=== PATIENT | male | born 1965 | race Caucasian/White ===

== ENCOUNTER 2020-11-08 22:21 | Emergency (ER) | payer SELFPAY ==
[2020-11-08 22:28] VITALS: PULSE 97; RESP 18; O2SAT 94; BMI 26.6
--- NOTE | 2020-11-08 22:32 | ED_ITS ---
HPI - General Adult General: Chief complaint: General Medical Stated complaint: MULTIPLE COMPLAINTS Time Seen by Provider: 11/08/20 22:29 Source: patient and police Mode of arrival: ambulatory Limitations: no limitations History of Present Illness: HPI narrative: 55-year-old male who is here from the local skilled nursing. He states the diabetic states has been taking his Metformin but his sugars been running in the 300s and has been had slight fatigue. States has had some shakiness. He denies any vomiting or diarrhea. Patient denies any syncope and denies any chest pain. He denies any worsening improving factors. Associated symptoms: Deny chest pain, dyspnea, headache(s), nausea, rash or vomiting Review of Systems Const: Reports: fatigue; Denies: fever(s), chills, body aches or change in appetite Eyes: Denies: blurry vision or eye discomfort ENMT: Denies: throat pain or dental pain Card: Denies: chest pain Resp: Denies: dyspnea GI: Denies: abdominal pain, nausea, vomiting or diarrhea : Denies: dysuria Musc: Denies: neck pain or back pain Skin/Breast: Denies: rash Neuro: Denies: headache(s) Psych: Denies: depression Dionicio/Lymph: Denies: easy bruising All/Imm: Denies: urticaria Physical Exam Const: COMMON NORMALS: no acute distress, patient oriented x3 and healthy appearing HENMT: COMMON NORMALS: normocephalic and atraumatic HEAD & SCALP: normocephalic and atraumatic Eye: COMMON NORMALS: Equal, round and reactive pupils present and EOMs intact bilaterally PUPIL: Yes Equal, round and reactive pupils present Neck/C-Spine: COMMON NORMALS: full ROM and supple Chest: COMMONS NORMALS: normal inspection of the chest and normal palpation of entire chest wall Resp: COMMON NORMALS: normal respiratory effort, No retractions, No use of accessory muscles and clear to auscultation bilaterally AUSCULTATION: clear to auscultation bilaterally Cardio: COMMON NORMALS: regular rate, regular rhythm and No murmurs present (Cardio) RATE: regular rate RHYTHM: regular rhythm GI: COMMON NORMALS: Normal to inspection, nondistended, normoactive bowel sounds present, Soft to palpation, non-tender and no masses PALPATION: Yes Soft to palpation Extremity: COMMON NORMALS: normal to inspection and full ROM Neuro: COMMON NORMALS: patient oriented x3, moves all extremities and no focal motor deficits Psych: COMMON NORMALS: mental status grossly normal, Normal thought process present and cooperative THOUGHT PROCESS: Normal thought process present Skin: COMMON NORMALS: no rashes or lesions noted and no wounds GENERAL SKIN EXAM: no rashes or lesions noted Course Vital Signs: Vital signs: Vital Signs Pulse Rate 97 11/08/20 22:28 Respiratory Rate 18 11/08/20 22:28 Pulse Oximetry 94 11/08/20 22:28 MDM - General Adult MDM Narrative: Medical decision making narrative: Patient presents here with hyperglycemia from his diabetes. He is not in DKA and his blood sugar is much improved here. He is continue his Metformin patient discharged back into police custody. He is return if worsening. Lab Data: Labs: Lab Results 11/08/20 11/08/20 11/08/20 Range/Units 22:46 22:46 22:52 WBC 8.2 (4.0-10.0) 10^3/ uL RBC 5.34 H (4.1-5.3) 10^6/u L Hgb 15.7 (11.7-16.6) g/dL Hct 45.1 (42.0-52.0) % MCV 84.5 (80-94) fL MCH 29.4 (28.0-34.0) pg MCHC 34.8 (30.0-36.0) g/dL RDW 12.8 (12.1-15.1) % Plt Count 187 (130-400) 10^3/c mm MPV 10.1 (7.4-10.4) fL Neut % (Auto) 67.5 % Lymph % (Auto) 23.9 % [place] % (Auto) 6.7 % Eos % (Auto) 1.5 % Baso % (Auto) 0.2 % Neut # (Auto) 5.55 (1.8-7.7) 10^3/u L Lymph # (Auto) 2.0 (0.8-4.8) 10^3/u L [place] # (Auto) 0.6 (0.2-0.9) 10^3/u L Eos # (Auto) 0.1 (0.0-0.8) 10^3/u L Baso # (Auto) 0.0 (0.0-0.1) 10^3/u L Nucleated RBC % (a uto) 0 % Nucleated RBCs # 0.0 /100WBC Sodium 136 (136-145) mmol/L Potassium 4.3 (3.5-5.1) mmol/L Chloride 98 (98-107) mmol/L Carbon Dioxide 24 (22-29) mmol/L Anion Gap 18.3 (5-19) BUN 15 (6-20) mg/dL Creatinine 0.6 L (0.7-1.2) mg/dL GFR Calculation 140.9 H (90-130) mL/min Glucose 345 H (65-115) mg/dL POC Glucose 324 H (70-110) mg/dL Calculated Osmolal ity 297 H (285-295) mOsm/k g Calcium 9.1 (8.5-10.5) mg/dL Total Bilirubin 0.5 (0.15-1.2) mg/dL AST 14 (0-40) U/L ALT 22 (0-41) U/L Alkaline Phosphata se 96 (40-130) IU/L Total Protein 6.2 L (6.6-8.7) g/dL Albumin 4.2 (3.5-5.2) g/dL Globulin 2.0 (1.3-4.6) g/dL Discharge Plan Discharge Patient Disposition: Home Clinical Impression: Hyperglycemia Condition: Stable Discharge Orders: Discharge ED (Routine); Ordered 11/08/20 Ordered By: Marissa King Discharge Diet: Advance as tolerated Discharge Activity: Resume usual activity Patient Instructions: Diabetic Hyperglycemia (ED) Coding Level of Care Code ED Collateral Specialist for Chg Fwd Exam Comprehensive
[2020-11-08] MEDS: sodium chloride 0.9% 1,000 ML 999 ML IV (22:47)
[2020-11-08 22:51] LABS: Basophils % 0.2 %; Eosinophils # 0.1 10^3/uL (0.0-0.8); Eosinophils % 1.5 %; Hematocrit 45.1 % (42.0-52.0); Hemoglobin 15.7 g/dL (11.7-16.6); Lymphocytes % 23.9 %; Mean Corpuscular HGB Conc 34.8 g/dL (30.0-36.0); Mean Corpuscular Hemoglobin 29.4 pg (28.0-34.0); Mean Corpuscular Volume 84.5 fL (80-94); Mean Platelet Volume 10.1 fL (7.4-10.4); Monocytes # 0.6 10^3/uL (0.2-0.9); Monocytes % 6.7 %; Neutrophils # 5.55 10^3/uL (1.8-7.7); Neutrophils % 67.5 %; Nucleated Red Blood Cells % 0 %; Platelet Count 187 10^3/cmm (130-400); Red Blood Count 5.34 10^6/uL (4.1-5.3); Red Cell Distribution Width 12.8 % (12.1-15.1); White Blood Count 8.2 10^3/uL (4.0-10.0)
[2020-11-08 22:53] LABS: Glucose Point of Care 324 mg/dL (70-110)
[2020-11-08 23:11] LABS: Alanine Aminotransferase 22 U/L (0-41); Albumin Level 4.2 g/dL (3.5-5.2); Alkaline Phosphatase 96 IU/L (40-130); Anion Gap 18.3 (5-19); Aspartate Amino Transferase 14 U/L (0-40); Blood Urea Nitrogen 15 mg/dL (6-20); Calcium 9.1 mg/dL (8.5-10.5); Carbon Dioxide 24 mmol/L (22-29); Chloride 98 mmol/L (98-107); Glomerular Filtration Rate 140.9 mL/min (90-130); Glucose 345 mg/dL (65-115); Osmolality Calculated 297 mOsm/kg (285-295); Potassium 4.3 mmol/L (3.5-5.1); Sodium 136 mmol/L (136-145); Total Bilirubin 0.5 mg/dL (0.15-1.2); Total Protein 6.2 g/dL (6.6-8.7)
[2020-11-08] MEDS: insulin regular-human 100 units/1 mL 5 UNIT IVP (23:24)
[2020-11-08 23:54] LABS: Glucose Point of Care 241 mg/dL (70-110)
[2020-11-08 23:59] VITALS: PULSE 80; RESP 16; O2SAT 95
== END 2020-11-09 | disposition home or self-care (01) ==
PROVIDERS: Emergency Provider Emergency Medicine
DX: E11.65 Type 2 diabetes mellitus with hyperglycemia (principal); Z79.84 Long term (current) use of oral hypoglycemic drugs
CPT/HCPCS: 36416; 80053; 82962; 85025; 96361; 96374; 99283; J1815; J7030

== ENCOUNTER 2024-07-24 02:11 | Emergency (ER) | payer MEDICAID, SELFPAY ==
[2024-07-24 02:16] VITALS: BP 126/70; PULSE 119; RESP 18; TEMP 36.6; O2SAT 96; BMI 22.2
[2024-07-24 02:31] LABS: Glucose Point of Care 549 mg/dL (70-110)
--- NOTE | 2024-07-24 02:32 | XRR_ITS ---
PROCEDURE INFORMATION: Exam: XR Chest Exam date and time: 07/24/2024 2:40 AM Age: 58 years old Clinical indication: Other: Weakness TECHNIQUE: Imaging protocol: Radiologic exam of the chest. Views: 1 view. COMPARISON: No relevant prior studies available. FINDINGS: Lungs: There is minimal atelectasis at the left lung base. No consolidated infiltrates are appreciated. Pleural spaces: There is minimal blunting of the left costophrenic angle which may be related to a small amount of pleural fluid or pleural thickening. No pneumothorax is identified. Heart/Mediastinum: Unremarkable. No cardiomegaly. Bones/joints: Unremarkable. XR/XR chest 1V portable [id number] IMPRESSION: 1. Minimal atelectasis left lung base with possible small left pleural effusion.
--- NOTE | 2024-07-24 02:36 | ECG_ITS ---
[facility] Test Date: 2024-07-24 Pat Name: Fernando Francisco Department: Room: Gender: Male Retail Banker: : 1965 Requested By: Paul Pitts Order Number: [id number] Vianey MD: Rina Powell M.D. Measurements Intervals [place] Rate: 109 P: 79 NM: 117 QRS: 109 QRSD: 90 T: 63 QT: 323 QTc: 435 Interpretive Statements SINUS TACHYCARDIA WITH SHORT NM INTERVAL POSSIBLE LEFT ATRIAL ENLARGEMENT [-0.1mV P-WAVE IN V1/V2] RIGHT AXIS DEVIATION [QRS AXIS > 100] No previous ECG available for comparison Electronically Signed On 07-25-2024 10:38:04 CDT by Rina Powell M.D. [id number]
[2024-07-24 02:40] LABS: Basophils % 0.3 %; Eosinophils # 0.1 10^3/uL (0.0-0.8); Eosinophils % 0.5 %; Hematocrit 50.1 % (37-53); Lymphocytes # 3.2 10^3/uL (0.8-4.8); Lymphocytes % 33.5 %; Mean Corpuscular HGB Conc 35.5 g/dL (30-55); Mean Corpuscular Hemoglobin 29.5 pg (27-33); Mean Corpuscular Volume 83.1 fl (82-101); Mean Platelet Volume 9.8 fL (7.4-10.4); Monocytes # 0.8 10^3/uL (0.2-0.9); Monocytes % 8.1 %; Neutrophils # 5.49 10^3/uL (1.8-7.7); Neutrophils % 57.3 %; Nucleated Red Blood Cells % 0 %; Platelet Count 285 10^3/cmm (157-399); Red Blood Count 6.03 10^6/uL (3.85-5.65); Red Cell Distribution Width 12.6 % (12.1-15.1); White Blood Count 9.59 10^3/uL (3.29-11.43)
--- NOTE | 2024-07-24 02:43 | CTR_ITS ---
PROCEDURE INFORMATION: Exam: CT Abdomen And Pelvis With Contrast Exam date and time: 07/24/2024 3:05 AM Age: 58 years old Clinical indication: Abdominal pain; Generalized TECHNIQUE: Imaging protocol: Computed tomography of the abdomen and pelvis with contrast. Radiation optimization: All CT scans at this facility use at least one of these dose optimization techniques: automated exposure control; mA and/or kV adjustment per patient size (includes targeted exams where dose is matched to clinical indication); or iterative reconstruction. Contrast material: OMNI 350; Contrast volume: 100 ml; Contrast route: INTRAVENOUS (IV); COMPARISON: CR (CHEST, ) 07/24/2024 2:40 AM RADIATION DOSE METRICS: Total DLP (mGy-cm): 423.85 FINDINGS: Lungs: Lung bases are clear as visualized. Liver: There is minimal fatty infiltration of the liver. The liver is otherwise normal. Gallbladder and biliary ducts: Normal. No calcified stones. No ductal dilation. Pancreas: Normal. No ductal dilation. Spleen: Small benign-appearing cyst is noted within the spleen. The spleen is otherwise normal. Adrenal glands: Normal. No mass. Kidneys and ureters: There are tiny benign-appearing renal cysts. The kidneys are otherwise normal. Stomach and bowel: The stomach is mildly distended with fluid. There are air-fluid levels involving non and minimally distended loops of small bowel. There may be mild bowel wall thickening. No transition point is identified. There may be minimal wall thickening versus underdistention involving the distal descending colon and sigmoid colons. No adjacent fat stranding is noted. Appendix: No evidence of appendicitis. Intraperitoneal space: Unremarkable. No free air. No significant fluid collection. Vasculature: The aorta is normal in caliber. There is calcified plaque involving the aorta and its branch vessels. Lymph nodes: Unremarkable. No enlarged lymph nodes. Urinary bladder: Unremarkable as visualized. Reproductive: Unremarkable as visualized. Bones/joints: Unremarkable. No acute fracture. Soft tissues: There is a tiny fat filled periumbilical hernia. CT/CT abdomen pelvis w con* [id number] IMPRESSION: 1. Air-fluid level with mild distension involving the stomach. There also air-fluid levels involving non and minimally distended loops of small bowel. Findings are nonspecific but could be related to an ileus or enteritis. Given lack of transition point, a partial small bowel obstruction is felt to be less likely. 2. Mild wall thickening versus underdistention involving the distal descending colon and sigmoid colons. Recommend clinical correlation as to the presence of a mild colitis. COMMENTS: Consistent with the [employer]'s Incidental Findings Committee white paper (J Am Stewart Radiol 2018): Any incidental renal lesion less than 1 cm or classified as too small to characterize, or any incidental cystic renal lesion characterized as simple-appearing, is likely benign. No follow-up imaging is recommended for these lesions per consensus recommendations based on imaging criteria.
[2024-07-24] MEDS: diphenhydrAMINE 50 mg/mL SDV 1mL IVP (02:49)
[2024-07-24] MEDS: sodium chloride 0.9% 1,000 ML 999 ML IV ×2 (02:49→03:33)
[2024-07-24] MEDS: prochlorperazine 10 mg/2 mL Inj IVP (02:50)
[2024-07-24 02:51] LABS: Alanine Aminotransferase 27 U/L (0-41); Albumin Level 4.1 g/dL (3.5-5.2); Alkaline Phosphatase 161 U/L (40-130); Anion Gap 19.2 (5-19); Aspartate Amino Transferase 17 U/L (0-40); Blood Urea Nitrogen 25 mg/dL (6-20); Calcium 9.8 mg/dL (8.5-10.5); Carbon Dioxide 26 mmol/L (22-29); Chloride 90 mmol/L (98-107); Creatinine Clr Calc Pharmacy 105.5307; Globulin 3.1 g/dL (1.3-4.6); Glomerular Filtration Rate 116.7 mL/min (90-130); Lipase 50 U/L (13-60); Osmolality Calculated 299 mOsm/kg (285-295); Potassium 5.2 mmol/L (3.5-5.1); Sodium 130 mmol/L (136-145); Total Bilirubin 0.7 mg/dL (0.15-1.2); Total Protein 7.2 g/dL (6.6-8.7)
[2024-07-24 02:52] LABS: Lactic Sepsis W/Reflex 1.8 mmol/L (0.5-2.2)
[2024-07-24 02:59] LABS: Alcohol Level < 10 mg/dL (0-10)
[2024-07-24 03:00] LABS: Glucose 546 mg/dL (65-115)
[2024-07-24 03:02] LABS: Ketone (Acetest) Serum Negative (Negative)
[2024-07-24] MEDS: iohexol 350 mg/mL 500 mL Btl (per mL) IV (03:11)
[2024-07-24 03:18] VITALS: BP 126/70; PULSE 109; O2SAT 96
[2024-07-24 03:19] LABS: Base Excess VBG 3.2 mmol/L (-3.0-3.0); Blood Gas Allen Test Pos; Blood Gas Operator Identificat gerca; Blood Gas Sample Site Not specified; Blood Gas Sample Type Venous; HCO3 VBG 27.4 mmol/L (24-28); Oxygen Device ROOM AIR; PCO2 VBG 39.4 mmHg (41-51); PO2 VBG 57.9 mmHg (25-40); Venous Blood Gas Hematocrit 53.8 % (42-52); pH VBG 7.45 (7.32-7.42)
--- NOTE | 2024-07-24 03:24 | W.ED.ABDPA2 ---
HPI - Abdominal Pain General: Chief Complaint: Abdominal Pain Stated Complaint: Light Headed Time Seen by Provider: 07/24/24 02:28 History of Present Illness: Patient is a 58-year-old gentleman with a history of diabetes who states he was recently started on Ozempic and has felt generally unwell for the last 1 to 2 days. He is had some nausea and complains of generalized upper abdominal pain this evening. He also complains of feeling somewhat dizzy as if things are spinning. MD elicited complaint: abdominal pain Onset (ago): day(s) Severity: moderate Related Data Allergies Allergy/AdvReac Type Severity Reaction Status Date / Time No Known Allergies Allergy Verified 11/08/20 22:28 Physical Exam Const: COMMON NORMALS: no acute distress, average body habitus, alert and well nourished GENERAL APPEARANCE: cooperative ORIENTATION/CONSCIOUSNESS: Yes awake HENMT: COMMON NORMALS: normocephalic and atraumatic HEAD & SCALP: normocephalic and atraumatic Eye: COMMON NORMALS: conjunctivae normal CONJUNCTIVA: Yes conjunctivae normal Neck/C-Spine: GENERAL: Yes normal visual inspection Resp: COMMON NORMALS: normal respiratory effort, No retractions and No use of accessory muscles Cardio: COMMON NORMALS: Peripheral pulses 2+ throughout; negative for regular rate RATE: abnormal rate and tachycardic PERIPHERAL PULSES: Peripheral pulses 2+ throughout GI: COMMON NORMALS: Soft to palpation PALPATION: Yes Soft to palpation OTHER: Abdomen is soft and nondistended, patient has focal tenderness in epigastric and right upper quadrant, Extremity: COMMON NORMALS: full ROM and no pedal edema Neuro: COMMON NORMALS: no focal motor deficits SENSORIUM/ORIENTATION: Yes alert Skin: COMMON NORMALS: no rashes or lesions noted GENERAL SKIN EXAM: no rashes or lesions noted Course Vital Signs: Vital signs: Vital Signs Temperature 97.8 F 07/24/24 02:16 Pulse Rate 100 07/24/24 04:53 Respiratory Rate 18 07/24/24 02:16 Blood Pressure 126/91 07/24/24 04:53 Pulse Oximetry 98 07/24/24 04:53 Oxygen Delivery Me thod Room Air 07/24/24 02:16 MDM - Abdominal Pain Medical Decision Making Patient is a 58-year-old male who presents to the ER with complaints of some epigastric abdominal pain, nausea, and dizziness. He denies any fevers or chills. He states he has not felt well the last several days after starting new diabetic medication. He states his blood sugar is always greater than 400. Basic labs were obtained which shows blood glucose of 546. Renal function is normal. He has mild concentration of his blood with hemoglobin of 17.8. Chest x-ray shows some minimal atelectasis of the left lung base. CT scan of the abdomen and pelvis shows some air-fluid levels with mild distention of the stomach consistent with some nonspecific ileus or enteritis. No bowel obstruction noted. No acute inflammatory findings noted. Patient has no history of abdominal surgeries I think bowel obstruction is less likely. Additionally, he is not vomiting. Patient was given 2 L of IV fluid and 10 units of IV insulin. On recheck his blood sugar is down to around 300. He is resting comfortably and feeling much better on reassessment. At this time I do not see any indication for admission or additional diagnostic workup. He is comfortable with discharge and I have encouraged him to follow-up with his PCP for improved glycemic control. Differential Diagnosis Likely abdominal pain, acute appendicitis, diverticulitis and pancreatitis Lab Data I reviewed the patient's lab results. 07/24/24 02:24 07/24/24 02:24 Labs/Radiology: Radiology Impressions Chest X-Ray 07/24/24 02:32 IMPRESSION: 1. Minimal atelectasis left lung base with possible small left pleural effusion. Abdomen/Pelvis CT 07/24/24 02:43 IMPRESSION: 1. Air-fluid level with mild distension involving the stomach. There also air-fluid levels involving non and minimally distended loops of small bowel. Findings are nonspecific but could be related to an ileus or enteritis. Given lack of transition point, a partial small bowel obstruction is felt to be less likely. 2. Mild wall thickening versus underdistention involving the distal descending colon and sigmoid colons. Recommend clinical correlation as to the presence of a mild colitis. COMMENTS: Consistent with the [employer]'s Incidental Findings Committee white paper (J Am Stewart Radiol 2018): Any incidental renal lesion less than 1 cm or classified as too small to characterize, or any incidental cystic renal lesion characterized as simple-appearing, is likely benign. No follow-up imaging is recommended for these lesions per consensus recommendations based on imaging criteria. Laboratory Results WBC 9.59 10^3/uL (3.29-11.43) 07/24/24 02:24 RBC 6.03 10^6/uL (3.85-5.65) H 07/24/24 02:24 Hgb 17.80 g/dL (11.27-16.99) H 07/24/24 02:24 Hct 50.1 % (37-53) 07/24/24 02:24 MCV 83.1 fl (82-101) 07/24/24 02:24 MCH 29.5 pg (27-33) 07/24/24 02:24 MCHC 35.5 g/dL (30-55) 07/24/24 02:24 RDW 12.6 % (12.1-15.1) 07/24/24 02:24 Plt Count 285 10^3/cmm (157-399) 07/24/24 02:24 MPV 9.8 fL (7.4-10.4) 07/24/24 02:24 Neut % (Auto) 57.3 % 07/24/24 02:24 Lymph % (Auto) 33.5 % 07/24/24 02:24 [place] % (Auto) 8.1 % 07/24/24 02:24 Eos % (Auto) 0.5 % 07/24/24 02:24 Baso % (Auto) 0.3 % 07/24/24 02:24 Neut # (Auto) 5.49 10^3/uL (1.8-7.7) 07/24/24 02:24 Lymph # (Auto) 3.2 10^3/uL (0.8-4.8) 07/24/24 02:24 [place] # (Auto) 0.8 10^3/uL (0.2-0.9) 07/24/24 02:24 Eos # (Auto) 0.1 10^3/uL (0.0-0.8) 07/24/24 02:24 Baso # (Auto) 0.0 10^3/uL (0.0-0.1) 07/24/24 02:24 Nucleated RBC % (auto) 0 % 07/24/24 02:24 Nucleated RBCs # 0.0 /100WBC 07/24/24 02:24 Specimen Type Venous 07/24/24 03:06 Sample Site Not specified 07/24/24 03:06 Hammad Test Pos 07/24/24 03:06 VBG pH 7.45 (7.32-7.42) H 07/24/24 03:06 VBG pCO2 39.4 mmHg (41-51) L 07/24/24 03:06 VBG pO2 57.9 mmHg (25-40) H 07/24/24 03:06 VBG HCO3 27.4 mmol/L (24-28) 07/24/24 03:06 VBG Base Excess 3.2 mmol/L (-3.0-3.0) H 07/24/24 03:06 VBG Hematocrit 53.8 % (42-52) H 07/24/24 03:06 O2 Delivery Device Room air 07/24/24 03:06 FiO2 21.0 % 07/24/24 03:06 Elevator Builder ID [email or web address] 07/24/24 03:06 Sodium 130 mmol/L (136-145) L 07/24/24 02:24 Potassium 5.2 mmol/L (3.5-5.1) H 07/24/24 02:24 Chloride 90 mmol/L (98-107) L 07/24/24 02:24 Carbon Dioxide 26 mmol/L (22-29) 07/24/24 02:24 Anion Gap 19.2 (5-19) H 07/24/24 02:24 BUN 25 mg/dL (6-20) H 07/24/24 02:24 Creatinine 0.7 mg/dL (0.7-1.2) 07/24/24 02:24 GFR Calculation 116.7 mL/min (90-130) 07/24/24 02:24 Glucose 546 mg/dL (65-115) H* 07/24/24 02:24 POC Glucose 349 mg/dL (70-110) H 07/24/24 04:52 Calculated Osmolality 299 mOsm/kg (285-295) H 07/24/24 02:24 Lactic Acid 1.8 mmol/L (0.5-2.2) 07/24/24 02:24 Calcium 9.8 mg/dL (8.5-10.5) 07/24/24 02:24 Total Bilirubin 0.7 mg/dL (0.15-1.2) 07/24/24 02:24 AST 17 U/L (0-40) 07/24/24 02:24 ALT 27 U/L (0-41) 07/24/24 02:24 Alkaline Phosphatase 161 U/L (40-130) H 07/24/24 02:24 Total Protein 7.2 g/dL (6.6-8.7) 07/24/24 02:24 Albumin 4.1 g/dL (3.5-5.2) 07/24/24 02:24 Globulin 3.1 g/dL (1.3-4.6) 07/24/24 02:24 Lipase 50 U/L (13-60) 07/24/24 02:24 Urine Color Yellow (Yellow) 07/24/24 04:51 Urine Appearance Clear (CLEAR) 07/24/24 04:51 Urine pH 6.0 (5-7) 07/24/24 04:51 Ur Specific [place] 1.061 (1.005-1.030) H 07/24/24 04:51 Urine Protein Negative (Negative) 07/24/24 04:51 Urine Glucose (UA) 3+ (Normal) H 07/24/24 04:51 Urine Ketones 1+ (Negative) H 07/24/24 04:51 Urine Blood Negative (Negative) 07/24/24 04:51 Urine Nitrate Negative (Negative) 07/24/24 04:51 Urine Bilirubin Negative (Negative) 07/24/24 04:51 Urine Urobilinogen 0.2 mg/dL (Negative) 07/24/24 04:51 Ur Leukocyte Esterase Negative (Negative) 07/24/24 04:51 Urine RBC 0-2 /hpf (0-2) 07/24/24 04:51 Urine WBC 0-5 /hpf (0-5) 07/24/24 04:51 Ur Squamous Epith Cells 0-5 /hpf (0-5) 07/24/24 04:51 Amorphous Sediment Not Reportable 07/24/24 04:51 Urine Bacteria None seen /hpf (NONE) 07/24/24 04:51 Hyaline Casts 0-4 /lpf H 07/24/24 04:51 Ethyl Alcohol < 10 mg/dL (0-10) 07/24/24 02:24 Serum Ketones Negative (Negative) 07/24/24 02:24 All radiology interpretation(s) finalized by discharge Discharge Plan Discharge Patient Disposition: Home Clinical Impression: Hyperglycemia Abdominal pain Qualifiers: Abdominal location: generalized Qualified Code(s): R10.84 - Generalized abdominal pain Condition: Stable Discharge Orders: Discharge ED (Routine); Ordered 07/24/24 Ordered By: Paul Pitts Referrals: Tani Zhang MD [Primary Care Provider] - Discharge Diet: Advance as tolerated Discharge Activity: Increase activity as tolerated Patient Instructions: Abdominal Pain (ED), Opioid Safety, Pain Management Activity Restrictions/Additional Instructions: Continue home medication as previously directed. Contact your primary care provider to discuss further management of your diabetes which has been poorly controlled. Return to the ER for any concerns. Print Language: E[place] Coding Level of Care Code ED Inner Tube Tuber Machine Operator for Renate Costa
[2024-07-24] MEDS: insulin regular-human 100 units/1 mL 10 UNIT IVP (03:33)
[2024-07-24 03:36] VITALS: BP 139/80; PULSE 109; O2SAT 94
[2024-07-24 03:47] VITALS: BP 115/83; PULSE 112; O2SAT 95
[2024-07-24 04:53] VITALS: BP 126/91; PULSE 100; O2SAT 98
[2024-07-24 04:55] LABS: Glucose Point of Care 349 mg/dL (70-110)
[2024-07-24 04:59] LABS: Bilirubin Urine Negative (Negative); Blood Urine Negative (Negative); Glucose Urine UA 3+ (Normal); Ketones Urine 1+ (Negative); Leukocyte Esterase Urine Negative (Negative); Nitrate Urine Negative (Negative); Protein Urine Negative (Negative); Urine Appearance Clear (CLEAR); Urine Color Yellow (Yellow); Urobilinogen Urine 0.2 mg/dL (Negative)
[2024-07-24 05:03] LABS: Add Urine Microscopic? YES; Bacteria Urine None Seen /hpf; Hyaline Casts Urine 0-4 /lpf; RBC Urine 0-2 /hpf (0-2); Squamous Epithelial Cell Urine 0-5 /hpf (0-5); WBC Urine 0-5 /hpf (0-5)
[2024-07-24 05:04] LABS: Specific Gravity, Urine 1.061 (1.005-1.030)
[2024-07-24 05:30] VITALS: BP 122/92; PULSE 108; O2SAT 94
== END 2024-07-24 05:22 | disposition home or self-care (01) ==
PROVIDERS: Emergency Provider Student in an Organized Health Care Education/Training Program; PCP Family Medicine
DX: R10.84 Generalized abdominal pain (principal); E11.65 Type 2 diabetes mellitus with hyperglycemia
CPT/HCPCS: 36415; 36416; 36600; 71045; 74177; 80053; 80307; 81001; 82009; 82803; 82962; 83605; 83690; 85025; 93005; 96361; 96374; 96375; 99285; J0780; J1200; J1815; J7030